=== PATIENT | female | born 1990 | race African-American/Black ===

== ENCOUNTER 2022-01-27 23:00 | Inpatient (IN) | payer OTHER ==
[~2022-01-27] VITALS: Ht 165.1 cm; Wt 72.6 kg
[2022-01-28] MEDS ORDERED: PREN-176 PO (00:05)
[2022-01-28] MEDS ORDERED: METHYLERGONOVINE MALEATE 0.2 MG/ML IM PRN (02:15)
[2022-01-28] MEDS ORDERED: LIDOCAINE HCL 1% 20ML VIAL (Pyxis) INJ INFIL SCH (02:15)
[2022-01-28] MEDS ORDERED: BUTORPHANOL TARTRATE 2 MG/ML VIAL IV PRN (02:15)
[2022-01-28] MEDS: LACTATED RINGERS 1,000 ML IV SCH ×4 (02:15→18:15)
[2022-01-28] MEDS ORDERED: NALOXONE HCL 0.4 MG/ML 1ML VIAL IM PRN (02:15)
[2022-01-28] MEDS ORDERED: PENICILLIN G POTASSIUM 5 MMU in DEXT 5% WATER 100 ML IV SCH (02:30)
[2022-01-28] MEDS ORDERED: OXYTOCIN 30 UNITS/500ML NS PMX 500 ML IV ONE (02:30)
[2022-01-28 02:43] LABS: BASOPHILS % 0.3 % (0.0-2.0); EOSINOPHILS % 0.5 % (0.0-5.0); HEMATOCRIT. 33.6 % (36.0-48.0); HEMOGLOBIN. 11.1 g/dL (12.0-16.0); LYMPHOCYTES % 19.3 % (20.0-50.0); MEAN CORPUSCULAR HEMOGLOBIN 27.2 pg (28.0-32.0); MEAN CORPUSCULAR VOLUME 82.3 fL (81.0-99.0); MEAN PLATELET VOLUME 10.9 fl (7.4-10.4); MONOCYTES % 10.8 % (2.0-8.0); NEUTROPHILS % 69.1 % (40.0-76.0); PLATELET 199 x1000/uL (130-400); RED BLOOD CELL COUNT 4.09 mill/uL (4.2-5.4); RED CELL DISTRIBUTION WIDTH 15.3 % (11.6-14.6)
[2022-01-28 03:25] LABS: HEPATITIS B SURFACE ANTIGEN NEGATIVE
[2022-01-28 03:34] LABS: CLARITY URINE CLEAR (CLEAR); COLOR URINE YELLOW (YELLOW); KETONES URINE NEGATIVE (NEGATIVE); LEUKOCYTE ESTERASE URINE TRACE (NEGATIVE); NITRITE URINE NEGATIVE (NEGATIVE); OCCULT BLOOD URINE 3+ (NEGATIVE); PROTEIN URINE NEGATIVE (NEGATIVE); SPECIFIC GRAVITY URINE 1.009 (1.005-1.030); UROBILINOGEN URINE 0.2 E.U./dL (0.2-1.0)
[2022-01-28 03:51] LABS: *AMPHETAMINES SCREEN URINE NEGATIVE (NEGATIVE); *BARBITURATES SCREEN URINE NEGATIVE (NEGATIVE); *BENZODIAZEPINES SCREEN URINE NEGATIVE (NEGATIVE); *COCAINE SCREEN URINE NEGATIVE (NEGATIVE); CANNABINOID URINE SCREEN NEGATIVE (NEGATIVE); METHADONE URINE SCREEN NEGATIVE (NEGATIVE); OPIATES URINE SCREEN NEGATIVE (NEGATIVE); PHENCYCLIDINE URINE SCREEN NEGATIVE (NEGATIVE)
[2022-01-28 04:04] LABS: INR 0.9; PARTIAL THROMBOPLASTIN TIME 27.9 sec (23.4-31.0); PROTHROMBIN TIME 10.1 sec (9.6-11.0)
[2022-01-28] MEDS ORDERED: BENZOCAINE/LANOLIN/ALOE VERA SPRAY TOP PRN (06:15)
[2022-01-28] MEDS ORDERED: GLYCERIN/WITCH HAZEL LEAF MEDICATED PAD TOP PRN (06:15)
[2022-01-28] MEDS ORDERED: RHO(D) IMMUNE GLOBULIN 300 MCG/SYR IM PRN (06:15)
[2022-01-28] MEDS ORDERED: ACETAMINOPHEN WITH CODEINE 300/30MG TABLET PO PRN (06:15)
[2022-01-28] MEDS ORDERED: DIPHENHYDRAMINE 25MG CAPSULE PO PRN (06:15)
[2022-01-28] MEDS ORDERED: IBUPROFEN 400MG TABLET PO PRN (06:15)
[2022-01-28] MEDS ORDERED: HEMORRHOIDAL SUPP PR PRN (06:15)
[2022-01-28] MEDS ORDERED: BISACODYL 10MG SUPP PR PRN (06:15)
[2022-01-28] MEDS ORDERED: OXYTOCIN 30 UNITS/500ML NS PMX 500 ML IV SCH (06:15)
[2022-01-28] MEDS ORDERED: LANOLIN OINT 7GM TUBE TOP PRN (06:15)
[2022-01-28] MEDS ORDERED: PENICILLIN G POTASSIUM 2.5 MMU in DEXTROSE 5% WATER 50 ML IV SCH (06:30)
[2022-01-28 06:35] VITALS: BP 122/59
[2022-01-28 08:00] VITALS: BP 109/55
[2022-01-28] MEDS: SIMETHICONE 80MG TABLET CHEW PO SCH ×4 (08:00→20:52)
[2022-01-28] MEDS: PRENATAL VIT/FE FUMARATE/FA TABLET PO SCH (09:00)
[2022-01-28 16:00] VITALS: BP 115/74
[2022-01-28] MEDS: IBUPROFEN 800MG TABLET PO PRN ×2 (18:30→23:51)
[2022-01-28 19:00] VITALS: BP 125/75
[2022-01-28] MEDS ORDERED: DOCUSATE SODIUM 100MG CAPSULE PO SCH (21:00)
[2022-01-29 03:30] VITALS: BP 120/69
[2022-01-29] MEDS: IBUPROFEN 800MG TABLET PO PRN (05:39)
[2022-01-29] MEDS ORDERED: FERROUS SULFATE 325MG TABLET PO SCH (07:30)
[2022-01-29 08:00] VITALS: BP 110/80
[2022-01-29] MEDS: SIMETHICONE 80MG TABLET CHEW PO SCH (08:00)
[2022-01-29] MEDS: PRENATAL VIT/FE FUMARATE/FA TABLET PO SCH (09:00)
[2022-01-29 10:20] VITALS: BP 110/80
== END 2022-01-29 11:00 | disposition home or self-care (01) | DRG 560 ==
LOC: OBSVTOIN 23:00 → 8 EST LDRP 23:00 → 8EST 01-28 06:51
PROVIDERS: ADMIT Obstetrics & Gynecology; ATTEND Obstetrics & Gynecology
PROC: 10E0XZZ Delivery of Products of Conception, External Approach (ICD-10-PCS; principal; 2022-01-28)
DX: O42.913 Preterm premature rupture of membranes, unspecified as to length of time between rupture and onset of labor, third trimester (principal); Z37.0 Single live birth; O60.14X0 Preterm labor third trimester with preterm delivery third trimester, not applicable or unspecified; D62 Acute posthemorrhagic anemia; Z20.822 Contact with and (suspected) exposure to COVID-19; O69.81X0 Labor and delivery complicated by cord around neck, without compression, not applicable or unspecified; O99.02 Anemia complicating childbirth; Z53.21 Procedure and treatment not carried out due to patient leaving prior to being seen by health care provider; Z3A.36 36 weeks gestation of pregnancy
CPT/HCPCS: 36415; 80305; 81003; 85025; 86592; 86703; 86762; 86850; 86900; 87340; 87426; 99281; G0378; J2540; J7060; J7120